=== PATIENT | male | born 1965 | race African-American/Black ===

== ENCOUNTER 2018-05-24 16:09 | Emergency (ER) | payer OTHER, SELFPAY ==
[2018-05-24 16:24] LABS: #Basophils 0.1 thou/uL (0.0-0.2); #Lymphocytes 1.7 thou/uL (1.20-3.40); #Monocytes 0.4 thou/uL (0.11-0.59); #Neutrophils 4.1 thou/uL (1.40-6.50); %Basophils 1.2 % (0.0-1.0); %Eosinophils 0.2 % (0.0-10.0); %Monocytes 5.8 % (0.0-10.0); %Neutrophils 65.7 % (42.0-75.0); Hemoglobin 15.8 g/dL (14.0-18.0); Mean Corpuscular HGB CONC 36.3 g/dL (32.0-36.0); Mean Corpuscular Volume 88.2 fL (78.0-98.0); Platelet Count 257 thou/uL (130-400); RBC Distribution Width 12.3 % (11.5-14.5); Red Blood Cell (RBC) Count 4.92 mill/uL (4.70-6.10); White Blood Cell (WBC) Count 6.3 thou/uL (4.8-10.8)
[2018-05-24 16:41] LABS: ALT (SGPT) 16 U/L (8-55); AST (SGOT) 18 U/L (5-34); Albumin 5.9 g/dL (3.5-5.0); Alkaline Phosphatase 71 U/L (40-150); Anion Gap 25 mmol/L (10-20); BUN (Urea Nitrogen) 43 mg/dL (8.4-25.7); Bilirubin, Total 1.6 mg/dL (0.2-1.2); Calc. Creatinine Clearance 0 mL/min (70-130); Calcium 11.1 mg/dL (7.8-10.44); Carbon Dioxide 21 mmol/L (22-29); Chloride 93 mmol/L (98-107); Estimated GFR-MDRD 12; Glucose 482 mg/dL (70-105); Lipase 18 U/L (8-78); Potassium 6.2 mmol/L (3.5-5.1); Protein, Total 9.9 g/dL (6.0-8.3); Sodium 133 mmol/L (136-145)
[2018-05-24 16:48] LABS: CKMB 2.5 ng/mL (0-6.6); Troponin I Less than 0.010 ng/mL (< 0.028)
--- NOTE | 2018-05-24 17:10 | RAD ---
PORTABLE CHEST: 05/24/18 HISTORY: Chest pain. Lung thompson are clear. Heart and mediastinum appear normal. Vascular markings are normal. IMPRESSION: Unremarkable portable chest. POS: [id number]
[2018-05-24] MEDS ORDERED: Ondansetron HCl/PF 4 MG/2 ML Vial ONE (17:12)
[2018-05-24] MEDS ORDERED: Furosemide 40 MG/4 ML VIAL ONE (17:19)
[2018-05-24] MEDS ORDERED: Calcium Gluc 4.6 MEQ/10 ML (100 MG/ML) ONE ×2 (17:19→17:21)
[2018-05-24] MEDS ORDERED: Insulin Regular 300 UNITS/3 ML VIAL ONE (17:19)
[2018-05-24] MEDS ORDERED: Furosemide 100 MG/10 ML VIAL ONE (17:19)
[2018-05-24] MEDS ORDERED: Nitroglycerin 0.4 MG TAB (25 Tab Bottle) ONE (18:42)
== END 2018-05-24 18:32 | disposition short-term general hospital (02) ==
LOC: BURERS 16:09
DX: N17.9 Acute kidney failure, unspecified (principal); E87.5 Hyperkalemia; R07.2 Precordial pain; I25.2 Old myocardial infarction; E10.9 Type 1 diabetes mellitus without complications; I10 Essential (primary) hypertension; F17.220 Nicotine dependence, chewing tobacco, uncomplicated; Z79.899 Other long term (current) drug therapy
CPT/HCPCS: 36416; 71045; 80053; 82553; 83690; 84484; 85025; 85379; 93005; 94760; 96361; 96374; 96375; J1815; J1940; J2405